=== PATIENT | male | born 2000 | race Hispanic/Latino ===

== ENCOUNTER 2024-07-25 16:38 | Emergency (ER) | payer SELFPAY ==
[~2024-07-25] VITALS: Ht 165.1 cm; Wt 90.7 kg
[2024-07-25 17:16] LABS: BASOPHILS # (AUTO) 0.06 K/uL (0.00-0.20); BASOPHILS % (AUTO) 0.6 % (0.0-5.0); EOSINOPHILS # (AUTO) 0.24 K/uL (0.00-0.70); EOSINOPHILS % (AUTO) 2.2 % (0.0-8.0); HEMATOCRIT 49.3 % (42-54); IMMATURE GRANULOCYTE ABSOLUTE 0.05 K/uL (0-1); LYMPHOCYTES % (AUTO) 27.7 % (21.0-51.0); MEAN CORPUSCULAR HEMOGLOBIN 30.8 pg (27.0-33.0); MEAN CORPUSCULAR HGB CONC 34.9 g/dL (32.0-36.0); MEAN CORPUSCULAR VOLUME 88.2 fL (79-99); MONOCYTES # (AUTO) 0.8 K/uL (0.1-1.0); NEUTROPHILS # (AUTO) 6.7 K/uL (1.8-7.7); PLATELET COUNT (AUTO) 215 K/uL (130-400); RED BLOOD CELL COUNT(AUTO) 5.59 MIL/uL (4.50-6.20); RED CELL DISTRIBUTION WIDTH 12.2 % (11.0-15.5); WHITE BLOOD COUNT (AUTO) 10.7 K/uL (4.8-10.8)
[2024-07-25] MEDS: 0.9%NACL 1000ML 1,000 ML IV ONE (17:21)
[2024-07-25] MEDS: ketOROlac 30MG VIAL (30MG/ML) IVP ONE (17:21)
[2024-07-25 17:24] LABS: POTASSIUM 4.3 mmol/L (3.5-5.1)
[2024-07-25] MEDS ORDERED: IOHEXOL-350 75 ML VIAL IV ONE (18:02)
[2024-07-25 18:44] VITALS: BP 145/66; PULSE 72; RESP 20; TEMP 98.1; O2SAT 97
[2024-07-25 19:02] LABS: ADD UA MICROSCOPIC YES; APPEARANCE,URINE CLEAR (CLEAR); BILIRUBIN,URINE NEGATIVE (NEGATIVE); COLOR,URINE LIGHT-YELLOW (YELLOW); GLUCOSE, URINE (UA) NEGATIVE (NEGATIVE); KETONES,URINE NEGATIVE (NEGATIVE); LEUKOCYTE ESTERASE ,URINE NEGATIVE Leu/uL (NEGATIVE); NITRATE,URINE NEGATIVE (NEGATIVE); OCCULT BLOOD,URINE NEGATIVE (NEGATIVE); PROTEIN,URINE 20 mg/dL (NEGATIVE); UROBILINOGEN,URINE 0.2 mg/dL (0.2-1.0)
[2024-07-25 19:03] LABS: MUCUS,URINE RARE LPF (None Seen); RBC,URINE 0-1 /HPF (0-1); WBC,URINE 0-1 /HPF (0-1)
[2024-07-25] MEDS ORDERED: IBUP-2077 PO (19:07)
== END 2024-07-25 19:17 | disposition home or self-care (01) ==
LOC: EDH 16:38
DX: R10.32 Left lower quadrant pain (principal); E86.0 Dehydration; Z90.49 Acquired absence of other specified parts of digestive tract
CPT/HCPCS: 99285; 74177; 96374; 80048; 85025; 81001; 36415; J7030; J1885; Q9967